=== PATIENT | male | born 1960 | race Caucasian/White ===

== ENCOUNTER 2020-01-06 18:05 | Inpatient (IN) | payer OTHER ==
[~2020-01-06] VITALS: Ht 182.9 cm; Wt 93.8 kg
--- NOTE | 2020-01-06 18:20 | NUR ---
TASK RN: PT TO RADIOLOGY
--- NOTE | 2020-01-06 18:24 | NUR ---
TASK RN: PER DR HENRY, 59 YR OLD MALE HERE WITH C/O GENERAL MALAISE FOR A COUPLE OF DAYS. NEW TO THE AREA, HAS NOT BEEN COMPLIANT WITH MEDS. 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
[2020-01-06] MEDS ORDERED: SODIUM CHLORIDE 0.9% 1,000ML IVBOLUS ONE (18:30)
[2020-01-06] MEDS ORDERED: MORPHINE SULFATE 4 MG/ML, 1ML IVPush PRN (18:30)
[2020-01-06] MEDS ORDERED: SODIUM CHLORIDE FLUSH 10ML SYR IVF ONE (18:30)
--- NOTE | 2020-01-06 18:31 | NUR ---
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 as
[2020-01-06] MEDS ORDERED: MORPHINE SULFATE 4 MG/ML, 1ML ONE (18:47)
--- NOTE | 2020-01-06 18:59 | NUR ---
PT BACK IN ROOM. FIRST CONTACT. LABS DRAWN AND SENT. MEDS PER MAR. VSS. A&OX4 GCS 15. STILL FEELS DIZZY. NEUROS GROSSLY INTACT. DENIES CP/SOB. IVF INFUSING. CALL [facility] IN [place].
[2020-01-06 19:15] LABS: BASOPHILS # (AUTO) 0.02 x10^3/uL (0-0.1); BASOPHILS % (AUTO) 0 % (0-1); EOSINOPHILS # (AUTO) 0.16 x10^3/uL (0-0.4); EOSINOPHILS % (AUTO) 2 % (1-7); LYMPHOCYTES # (AUTO) 1.72 x10^3/uL (1-3.4); LYMPHOCYTES % (AUTO) 23 % (22-44); MD NO; MEAN CORPUSCULAR HEMOGLOBIN 30.9 pg (27.5-34.5); MEAN CORPUSCULAR HGB CONC 33.9 g/dL (33.2-36.2); MEAN CORPUSCULAR VOLUME 91.2 fL (81-97); MEAN PLATELET VOLUME 7.5 fL (7.4-10.4); MONOCYTES # (AUTO) 0.52 x10^3/uL (0.2-0.8); MONOCYTES % (AUTO) 7 % (2-9); NEUTROPHILS % (AUTO) 68 % (42-75); PLATELET COUNT 255 x10^3/uL (130-400); RED BLOOD COUNT 4.95 x10^6/uL (4.38-5.82); RED CELL DISTRIBUTION WIDTH 13.5 % (9.4-14.8)
[2020-01-06 19:18] LABS: ALANINE AMINOTRANSFERASE 24 U/L (12-78); ANION GAP 5 mmol/L (5-15); CALCIUM 8.3 mg/dL (8.5-10.1); CHLORIDE 108 mmol/L (98-107); CREATININE 1.37 mg/dL (0.7-1.3)
[2020-01-06 19:23] LABS: ALKALINE PHOSPHATASE 97 U/L (45-117); BILIRUBIN,TOTAL 0.2 mg/dL (0.2-1.0); TOTAL PROTEIN 6.7 g/dL (6.4-8.2); TROPONIN I < 0.015 ng/mL (0.000-0.045)
--- NOTE | 2020-01-06 19:28 | NUR ---
scans wnl. awaiting labs. as
--- NOTE | 2020-01-06 20:00 | NUR ---
report to [employer]. pt aware of need for ua. as
--- NOTE | 2020-01-06 20:48 | NUR ---
PT VSS AND UPDATED IN EMR. DR HENRY AT TO DISCUSS ADMISSION TO HOSPITAL WITH PT.
[2020-01-06] MEDS ORDERED: OMNIPAQUE 350 MG/ML, 100ML BOTTLE ONE (21:00)
[2020-01-06] MEDS ORDERED: Enoxaparin 1 mg/kg protocol SQ SCH (21:00)
--- NOTE | 2020-01-06 21:18 | NUR ---
REPORT OF PT TO SHANNAN ONOFRE. ALL QUESTIONS ANSWERED.
[2020-01-06] MEDS ORDERED: ENOXAPARIN 100 MG/ML ONE (21:19)
[2020-01-06] MEDS ORDERED: ENOXAPARIN 100 MG/ML SQ ONE (21:30)
[2020-01-06 22:07] VITALS: BP 150/94
[2020-01-07] MEDS ORDERED: TEMAZEPAM 15 MG CAPSULE PO PRN
[2020-01-07] MEDS ORDERED: ONDANSETRON ODT 4 MG PO PRN
[2020-01-07] MEDS ORDERED: DOCUSATE 100 MG CAPSULE PO PRN
[2020-01-07] MEDS ORDERED: hydrALAzine 20 MG/ML, 1ML IVPush PRN
[2020-01-07] MEDS ORDERED: ACETAMINOPHEN 325 MG TABLET PO PRN
[2020-01-07] MEDS ORDERED: MAGNESIUM SULFATE PMX 2GM/50ML 50 ML IV ONE
[2020-01-07] MEDS ORDERED: LIDODERM 5% PATCH TD PRN
[2020-01-07 00:53] VITALS: BP 156/83
[2020-01-07 01:11] LABS: TROPONIN I < 0.015 ng/mL (0.000-0.045)
[2020-01-07] MEDS ORDERED: METF10007 PO (01:42)
[2020-01-07] MEDS ORDERED: GLIP5TAB10 PO (01:44)
[2020-01-07] MEDS ORDERED: LISI-420 PO (01:45)
[2020-01-07] MEDS ORDERED: INSU100I18 SQ-INSULIN (01:49)
[2020-01-07] MEDS ORDERED: INSU100V8 SQ (01:49)
[2020-01-07 04:56] LABS: MICROSCOPIC AUTO
[2020-01-07 04:59] LABS: CULTURE INDICATED? NO
[2020-01-07 05:02] LABS: ANION GAP 3 mmol/L (5-15); CALCIUM 7.7 mg/dL (8.5-10.1); CHLORIDE 105 mmol/L (98-107)
[2020-01-07 05:03] LABS: BASOPHILS # (AUTO) 0.03 x10^3/uL (0-0.1); BASOPHILS % (AUTO) 1 % (0-1); EOSINOPHILS # (AUTO) 0.24 x10^3/uL (0-0.4); EOSINOPHILS % (AUTO) 4 % (1-7); LYMPHOCYTES # (AUTO) 2.26 x10^3/uL (1-3.4); LYMPHOCYTES % (AUTO) 38 % (22-44); MD NO; MEAN CORPUSCULAR HGB CONC 33.9 g/dL (33.2-36.2); MEAN CORPUSCULAR VOLUME 91.3 fL (81-97); MEAN PLATELET VOLUME 7.6 fL (7.4-10.4); MONOCYTES # (AUTO) 0.39 x10^3/uL (0.2-0.8); MONOCYTES % (AUTO) 7 % (2-9); NEUTROPHILS # (AUTO) 2.98 x10^3/uL (1.8-6.8); NEUTROPHILS % (AUTO) 50 % (42-75); PLATELET COUNT 238 x10^3/uL (130-400); RED BLOOD COUNT 4.57 x10^6/uL (4.38-5.82); RED CELL DISTRIBUTION WIDTH 13.8 % (9.4-14.8)
[2020-01-07 05:07] LABS: CREATININE 0.99 mg/dL (0.7-1.3); TROPONIN I < 0.015 ng/mL (0.000-0.045)
[2020-01-07 06:41] VITALS: BP 168/91
[2020-01-07] MEDS ORDERED: ENOXAPARIN 100 MG/ML SQ SCH (09:00)
[2020-01-07] MEDS ORDERED: APIX5TAB PO (09:10)
[2020-01-07] MEDS ORDERED: GABA400C PO (09:10)
[2020-01-07] MEDS ORDERED: INSU100V11 SQ-INSULIN (09:10)
[2020-01-07] MEDS ORDERED: OMEP-110 PO (09:10)
[2020-01-07] MEDS ORDERED: GLIP10TA13 PO (09:10)
[2020-01-07] MEDS ORDERED: ATOR20TA37 PO (09:10)
[2020-01-07] MEDS: LISINOPRIL 20 MG TABLET PO SCH (11:04)
[2020-01-07] MEDS: APIXABAN 5 MG TABLET PO SCH ×2 (11:04→20:39)
[2020-01-07] MEDS: OMEPRAZOLE 20 MG CAPSULE.DR PO SCH ×2 (11:05→20:39)
[2020-01-07] MEDS: INSULIN LISPRO 100 UNITS/ML, PEN SQ-INSULIN SCH ×3 (11:07→20:40)
[2020-01-07 13:45] VITALS: BP 178/91
[2020-01-07 14:26] VITALS: BP 154/89
[2020-01-07] MEDS ORDERED: OXYcodone IR 5MG TABLET PO PRN (17:30)
[2020-01-07 18:24] VITALS: BP 157/82
[2020-01-07] MEDS: GABAPENTIN 400 MG CAPSULE PO SCH (20:39)
[2020-01-07] MEDS: FLUTICASONE NASAL SPRAY 16GM NAS SCH (20:42)
[2020-01-07] MEDS ORDERED: ATORVASTATIN 20 MG TABLET PO SCH (21:00)
[2020-01-07] MEDS ORDERED: INSULIN GLARGINE 100 UNITS/ML, PEN SQ-INSULIN SCH (21:00)
[2020-01-08 00:58] VITALS: BP 139/85
[2020-01-08 06:19] VITALS: BP 156/89
[2020-01-08] MEDS: GABAPENTIN 400 MG CAPSULE PO SCH (08:32)
[2020-01-08] MEDS: LISINOPRIL 20 MG TABLET PO SCH (08:32)
[2020-01-08] MEDS: OMEPRAZOLE 20 MG CAPSULE.DR PO SCH (08:32)
[2020-01-08] MEDS: APIXABAN 5 MG TABLET PO SCH (08:32)
[2020-01-08] MEDS: INSULIN LISPRO 100 UNITS/ML, PEN SQ-INSULIN SCH ×2 (08:33→12:06)
[2020-01-08] MEDS: FLUTICASONE NASAL SPRAY 16GM NAS SCH (08:34)
[2020-01-08 12:02] VITALS: BP 146/88
[2020-01-08] MEDS ORDERED: OMEP-110 PO (15:08)
[2020-01-08] MEDS ORDERED: ATOR20TA37 PO (15:08)
[2020-01-08] MEDS ORDERED: INSU100V11 SQ-INSULIN (15:08)
[2020-01-08] MEDS ORDERED: GABA400C PO (15:08)
[2020-01-08] MEDS ORDERED: APIX5TAB PO (15:08)
[2020-01-08] MEDS ORDERED: LISI-420 PO (15:08)
[2020-01-08] MEDS ORDERED: INSU100V8 SQ (15:08)
[2020-01-08] MEDS ORDERED: INSULIN GLARGINE 100 UNITS/ML, PEN SQ-INSULIN SCH (21:00)
== END 2020-01-08 16:20 | disposition home or self-care (01) | DRG 73 ==
LOC: ED 19:00 → EDIP 21:17 → 4WST 22:06 → DCLOUNGE 01-08 16:10
PROVIDERS: ADMIT Internal Medicine; ATTEND Hospitalist
DX: G90.8 Other disorders of autonomic nervous system (principal); N17.0 Acute kidney failure with tubular necrosis; S06.0X9A Concussion with loss of consciousness of unspecified duration, initial encounter; E11.65 Type 2 diabetes mellitus with hyperglycemia; E11.43 Type 2 diabetes mellitus with diabetic autonomic (poly)neuropathy; E83.42 Hypomagnesemia; G89.29 Other chronic pain; I12.9 Hypertensive chronic kidney disease with stage 1 through stage 4 chronic kidney disease, or unspecified chronic kidney disease; I25.10 Atherosclerotic heart disease of native coronary artery without angina pectoris; I25.2 Old myocardial infarction; K21.9 Gastro-esophageal reflux disease without esophagitis; M41.9 Scoliosis, unspecified; M51.36 Other intervertebral disc degeneration, lumbar region; Z79.4 Long term (current) use of insulin; Z86.711 Personal history of pulmonary embolism; Z86.718 Personal history of other venous thrombosis and embolism; Z91.19 Patient's noncompliance with other medical treatment and regimen; E11.22 Type 2 diabetes mellitus with diabetic chronic kidney disease; N18.9 Chronic kidney disease, unspecified; W18.39XA Other fall on same level, initial encounter; Y93.89 Activity, other specified; Y92.89 Other specified places as the place of occurrence of the external cause; Y99.8 Other external cause status; S50.811A Abrasion of right forearm, initial encounter; Z95.5 Presence of coronary angioplasty implant and graft
CPT/HCPCS: 36415; 70450; 71045; 71275; 72110; 80048; 80053; 81001; 82962; 83735; 83880; 84436; 84443; 84484; 85025; 85379; 93005; 93306; 93880; 96372; 96374; G0378; J1650; Q9967; J1815; J2270; J3475; J7030